=== PATIENT | male | born 1985 | race Two or more races ===

== ENCOUNTER 2019-09-05 10:33 | Emergency (ER) | payer SELFPAY ==
[~2019-09-05] VITALS: Ht 177.8 cm; Wt 77.3 kg
[2019-09-05 10:43] VITALS: BP 114/65
--- NOTE | 2019-09-05 12:02 | NUR ---
AUREA Jones at bedside.
[2019-09-05] MEDS ORDERED: cyclobenzaprine 10mg tablet PO ONE (12:05)
[2019-09-05] MEDS ORDERED: LIDOcaine 5% patch TP ONE (12:05)
[2019-09-05] MEDS ORDERED: CYCL-1 PO (12:32)
== END 2019-09-05 12:59 | disposition home or self-care (01) ==
LOC: ER 10:34
DX: M54.5 Low back pain (principal)
CPT/HCPCS: 99283